=== PATIENT | female | born 1990 | race African-American/Black ===

== ENCOUNTER 2018-04-29 09:02 | Emergency (ER) | payer BC ==
[2018-04-29 09:15] VITALS: BP 124/53; PULSE 100; TEMP 98.6; BMI 26.4
--- NOTE | 2018-04-29 09:27 | PDOC ---
History of Present Illness - General Chief Complaint: Chest Pain Stated Complaint: CHEST PAIN Time Seen by Provider: 04/29/18 09:27 History Source: Patient - History of Present Illness Initial Comments: 04/29/18 09:28 27-year-old female complaining of epigastric pain with frequent burping. For several days. Patient reports that she also hasn't had her period since January. Patient reports that she has been having hot flashes on and off and I' m just here to have my blood work done. Patient reports that she has no primary care. And is visiting from [place] "I don't trusted doctors in [place] and I just want blood work done. "Patient denies nausea vomiting, diarrhea, lower abdominal pain, chest pain, respiratory distress. Past History - Past Medical History Allergies/Adverse Reactions: Allergies Allergy/AdvReac Type Severity Reaction Status Date / Time No Known Allergies Allergy Verified 04/30/13 17:10 Home Medications: Ambulatory Orders NK [No Known Home Medication] 04/29/18 Anemia: No COPD: No - Reproductive History Cervical CA: No Dysfunctional Uterine Bleeding: No Ectopic : No Endometrial CA: No Polycystic Ovaries: No Spontaneous : 0 - Immunization History Td Vaccination: Yes Immunization Up to Date: Yes - Suicide/Smoking/Psychosocial Hx Smoking Status: No Smoking History: Never smoked Number of Cigarettes Smoked Daily: 0 Hx Alcohol Use: No Drug/Substance Use Hx: No Substance Use Type: None Review of Systems - Review of Systems Able to Perform ROS?: Yes Is the patient limited Kazakh proficient: No Constitutional: No: Symptoms Reported, See HPI, Chills, Diaphoresis, Fever, Loss of Appetite, Malaise, Night Sweats, Weakness, Weight Stable, Unintentional Wgt. Loss, Unexplained wgt Loss, Other ABD/GI: Yes: Other (burping and epigastric pain) *Physical Exam - Vital Signs Last Vital Signs Temp Pulse Resp BP Pulse Ox 98.6 F 100 H 16 124/53 L 100 04/29/18 09:11 04/29/18 09:11 04/29/18 09:11 04/29/18 09:11 04/29/18 09:11 - Physical Exam General Appearance: Yes: Other (patient refused physical exam) Moderate Sedation - Procedure Monitoring Vital Signs: Procedure Monitoring Vital Signs Temperature 98.6 F 04/29/18 09:11 Pulse Rate 100 H 04/29/18 09:11 Respiratory Rate 16 04/29/18 09:11 Blood Pressure 124/53 L 04/29/18 09:11 O2 Sat by Pulse Oximetry (%) 100 04/29/18 09:11 Medical Decision Making - Medical Decision Making 04/29/18 09:41 patientr refused physical exam. " I just want to put my clothes back on." i advised her that i can arrange clinic appointment if desired, patient refused. patient walked out of fast track. *DC/Admit/Observation/Transfer Diagnosis at time of Disposition: Epigastric pain - Referrals - Patient Instructions - Post Discharge Activity
--- NOTE | 2018-04-29 09:42 | PDOC ---
*Physical Exam - Vital Signs Last Vital Signs Temp Pulse Resp BP Pulse Ox 98.6 F 100 H 16 124/53 L 100 04/29/18 09:11 04/29/18 09:11 04/29/18 09:11 04/29/18 09:11 04/29/18 09:11 ED Treatment Course - LABORATORY CBC & Chemistry Diagram: 04/29/18 09:50 04/29/18 09:50 Medical Decision Making - Medical Decision Making 04/29/18 09:42 Pt seen by Midlevel Provider under my direct supervision Ancillary studies reviewed I agree with plan as outlined by Midlevel Provider *DC/Admit/Observation/Transfer Diagnosis at time of Disposition: Epigastric pain, Amenorrhea - Discharge Dispostion Disposition: HOME Condition at time of disposition: Good - Prescriptions Prescriptions: Famotidine [Pepcid] 20 mg PO DAILY #14 tablet Mag Hydrox/Al Hydrox/Simeth [Mylanta Suspension -] 30 ml PO Q6H #1 bottle - Referrals - Patient Instructions Printed Discharge Instructions: Gastritis, DI for Amenorrhea Additional Instructions: Your labs was normal Take pepcid/maalox as needed for abd pain and follow up with your PMD for further evaluation Please follow with your [facility] [employer] to discuss amenorrhea - Post Discharge Activity
--- NOTE | 2018-04-29 09:43 | PDOC ---
History of Present Illness - General Chief Complaint: Chest Pain Stated Complaint: CHEST PAIN Time Seen by Provider: 04/29/18 09:27 History Source: Patient - History of Present Illness Timing/Duration: reports: intermittent Past History - Past Medical History Allergies/Adverse Reactions: Allergies Allergy/AdvReac Type Severity Reaction Status Date / Time No Known Allergies Allergy Verified 04/30/13 17:10 Home Medications: Ambulatory Orders Famotidine [Pepcid] 20 mg PO DAILY #14 tablet 04/29/18 Mag Hydrox/Al Hydrox/Simeth [Mylanta Suspension -] 30 ml PO Q6H #1 bottle Anemia: No COPD: No - Reproductive History Cervical CA: No Dysfunctional Uterine Bleeding: No Ectopic : No Endometrial CA: No Polycystic Ovaries: No Spontaneous : 0 - Immunization History Td Vaccination: Yes Immunization Up to Date: Yes - Suicide/Smoking/Psychosocial Hx Smoking Status: No Smoking History: Never smoked Number of Cigarettes Smoked Daily: 0 Hx Alcohol Use: No Drug/Substance Use Hx: No Substance Use Type: None Review of Systems - Review of Systems Constitutional: No: Chills, Fever Respiratory: No: Shortness of Breath Cardiac (ROS): No: Chest Pain ABD/GI: No: Blood Streaked Bowels, Constipated, Diarrhea, Nausea, Rectal Bleeding, Vomiting, Tarry Stools : No: Dysuria *Physical Exam - Vital Signs Last Vital Signs Temp Pulse Resp BP Pulse Ox 98.6 F 100 H 16 124/53 L 100 04/29/18 09:11 04/29/18 09:11 04/29/18 09:11 04/29/18 09:11 04/29/18 09:11 - Physical Exam General Appearance: Yes: Appropriately Dressed. No: Apparent Distress HEENT: positive: Normal Voice Neck: positive: Supple Respiratory/Chest: positive: Lungs Clear, Normal Breath Sounds Cardiovascular: positive: Regular Rate, S1, S2 Gastrointestinal/Abdominal: positive: Soft. negative: Tender Musculoskeletal: negative: CVA Tenderness Integumentary: positive: Dry, Warm Neurologic: positive: Fully Oriented, Alert, Normal Mood/Affect Moderate Sedation - Procedure Monitoring Vital Signs: Procedure Monitoring Vital Signs Temperature 98.6 F 04/29/18 09:11 Pulse Rate 100 H 04/29/18 09:11 Respiratory Rate 16 04/29/18 09:11 Blood Pressure 124/53 L 04/29/18 09:11 O2 Sat by Pulse Oximetry (%) 100 04/29/18 09:11 ED Treatment Course - LABORATORY CBC & Chemistry Diagram: 04/29/18 09:50 04/29/18 09:50 Medical Decision Making - Medical Decision Making 04/29/18 09:41 27 yo F, no sig hx, here w/ epigastric pain. Pt reports pain x 2 months, on and off, tight in nature, worse w/ food and better w/ belching. States pain started around taking her midterms and thought it was due to stress. No n/v, melena, BRBPR, diarrhea or constipation. States she decided to come in today for evaluation for the first time as her mditerms is over and she continues to have sxs intermittently. Denies pain at this time. Also reports amenorrhea since but did not do preg test as she has not had sexual intercourse since 02/11 per pt. States she had amenorrhea in past that was due to stress. see exam Possible gastritis/GERD Asx currently Exam unremarkable -basic labs -anticipate dc w/ symptomatic tx and GI referral Amenorrhea R/o preg, possibly 2/2 stress 04/29/18 11:25 Labs unremarkable. Pt remains asx. Wtll dc/w symptomatic tx and pmd and [facility] f/u *DC/Admit/Observation/Transfer Diagnosis at time of Disposition: Epigastric pain, Amenorrhea - Discharge Dispostion Disposition: HOME Condition at time of disposition: Good - Prescriptions Prescriptions: Famotidine [Pepcid] 20 mg PO DAILY #14 tablet Mag Hydrox/Al Hydrox/Simeth [Mylanta Suspension -] 30 ml PO Q6H #1 bottle - Referrals - Patient Instructions Printed Discharge Instructions: Gastritis, DI for Amenorrhea Additional Instructions: Your labs was normal Take pepcid/maalox as needed for abd pain and follow up with your PMD for further evaluation Please follow with your [facility] to discuss amenorrhea - Post Discharge Activity
[2018-04-29 10:20] LABS: EOS % 1.3 % (0-4.5); HEMATOCRIT 35.8 % (32.4-45.2); HEMOGLOBIN 12.7 GM/dL (10.7-15.3); LYMPH % 45.8 % (8-40); MCH 30.3 pg (25.7-33.7); MCHC 35.5 g/dl (32.0-36.0); MEAN CELL VOLUME 85.3 fl (80-96); MEAN PLT VOLUME 7.3 fl (7.5-11.1); MONO % 7.4 % (3.8-10.2); NEUT % 44.5 % (42.8-82.8); PLATELET COUNT 266 K/MM3 (134-434); WHITE BLOOD COUNT 4.8 K/mm3 (4.0-10.0)
[2018-04-29 10:24] LABS: URINE APPEARANCE SLCLOUDY; URINE BILIRUBIN NEGATIVE (<2.0 mg/dL); URINE COLOR YELLOW; URINE GLUCOSE (UA) NEGATIVE (NEGATIVE); URINE KETONE NEGATIVE (NEGATIVE); URINE LEUK ESTERASE TRACE (NEGATIVE); URINE NITRITE NEGATIVE (NEGATIVE); URINE PROTEIN NEGATIVE (NEGATIVE); URINE UROBILINOGEN NEGATIVE mg/dL (0.2-1.0)
[2018-04-29 10:27] LABS: EPI CELLS FEW /HPF (FEW); URINE BACTERIA FEW /hpf (NONE SEEN); URINE MUCUS RARE
[2018-04-29 10:48] LABS: ALBUMIN 4.2 g/dl (3.4-5.0); ALK PHOS 56 U/L (45-117); ANION GAP 6 MMOL/L (8-16); BILIRUBIN,TOTAL 0.7 mg/dL (0.2-1); BLOOD UREA NITROGEN 17 mg/dL (7-18); CALCIUM 8.9 mg/dL (8.5-10.1); CHLORIDE 110 mmol/L (98-107); CO2 25 mmol/L (21-32); CREATININE 0.8 mg/dL (0.55-1.3); GLUCOSE,RANDOM 101 mg/dL (74-106); POTASSIUM 3.8 mmol/L (3.5-5.1); SGOT/AST 14 U/L (15-37); SGPT/ALT 15 U/L (13-61); SODIUM 141 mmol/L (136-145)
--- NOTE | 2018-04-29 12:41 | EKG ---
Test Reason : Blood Pressure : / mmHG Vent. Rate : 084 BPM Atrial Rate : 084 BPM P-R Int : 128 ms QRS Dur : 096 ms QT Int : 388 ms P-R-T Axes : 056 073 053 degrees QTc Int : 458 ms NORMAL SINUS RHYTHM NORMAL ECG NO PREVIOUS ECGS AVAILABLE Confirmed by RANJANA HOLGUIN MD ([id number]) on 04/29/2018 12:40:28 PM Referred By: Confirmed By:RANJANA HOLGUIN MD
== END 2018-04-29 11:39 | disposition home or self-care (01) ==
LOC: JER 09:02 → JERFT 09:02 → JER 11:39
DX: R10.13 Epigastric pain (principal)
CPT/HCPCS: 36415; 80053; 81003; 81015; 83690; 84703; 85025; 93005; 93010; 99282-25

== ENCOUNTER 2024-01-29 19:35 | Emergency (ER) | payer BC, OTHER ==
[2024-01-29 19:56] VITALS: BP 113/65; PULSE 86; RESP 16; TEMP 98.5; BMI 29.0
[2024-01-29] MEDS ORDERED: METHOCARBAMOL 500 MG TABLET ONE (20:28)
[2024-01-29] MEDS ORDERED: IBUPROFEN 600 MG TABLET (FP) PO ONE (20:28)
[2024-01-29] MEDS ORDERED: LIDOCAINE 4% PATCH TP ONE (20:28)
[2024-01-29] MEDS: LIDOCAINE 4% PATCH TP ONE (20:33)
[2024-01-29] MEDS: IBUPROFEN 600 MG TABLET (FP) PO ONE (20:33)
[2024-01-29] MEDS: METHOCARBAMOL 500 MG TABLET PO ONE (20:34)
== END 2024-01-29 20:34 | disposition home or self-care (01) ==
LOC: JERFT 19:35 → JER 19:35 → JERFT 20:34
DX: M54.6 Pain in thoracic spine (principal); R51.9 Headache, unspecified; V49.40XA Driver injured in collision with unspecified motor vehicles in traffic accident, initial encounter
CPT/HCPCS: 99283-25

== ENCOUNTER 2024-02-10 23:15 | Emergency (ER) | payer OTHER ==
[2024-02-10 23:26] VITALS: BP 96/60; PULSE 79; RESP 18; TEMP 98.4; BMI 29.2
[2024-02-10 23:59] LABS: THROAT:GRP A STREP NOT DETECTED (NOTDETECTED)
[2024-02-11] MEDS ORDERED: ALBUTEROL SO4 HFA INHALER IH ONE (00:41)
[2024-02-11] MEDS: ALBUTEROL SO4 HFA INHALER IH ONE (00:42)
== END 2024-02-11 00:49 | disposition home or self-care (01) ==
LOC: JER 23:15
DX: R05.9 Cough, unspecified (principal); J02.9 Acute pharyngitis, unspecified; R06.02 Shortness of breath; Z20.822 Contact with and (suspected) exposure to COVID-19
CPT/HCPCS: 0241U-QW; 87651; 99283-25